=== PATIENT | female | born 1960 | race Caucasian/White ===

== ENCOUNTER → 2016-11-03 | Outpatient (CLI) | payer OTHER ==
[2016-11-03 10:28] LABS: CH 28.4; CHCM 32.2; HCT 45.1 % (34.0-46.0); HDW 2.74; HGB 14.1 gm/dL (11.4-16.0); MCH 27.7 pg (25.0-35.0); MCHC 31.3 g/dL (31.0-37.0); MCV 88.7 fL (80.0-100.0); RBC 5.08 m/uL (3.80-5.40); RDW 14.7 % (11.5-15.5); WBC 9.8 k/uL (3.8-10.6)
[2016-11-03 10:37] LABS: ALT 42 U/L (9-52); AST 20 U/L (14-36); Alkaline Phosphatase 69 U/L (38-126); Anion Gap 10 mmol/L; Blood Urea Nitrogen 13 mg/dL (7-17); Calcium 9.4 mg/dL (8.4-10.2); Carbon Dioxide 26 mmol/L (22-30); Chloride 108 mmol/L (98-107); Cholesterol 152 mg/dL (<200); Glucose 87 mg/dL (74-99); HDL Cholesterol 71 mg/dL (40-60); Non-African American GFR(MDRD) >60 (>60 ml/min/1.73 sqM); Potassium 4.9 mmol/L (3.5-5.1); Sodium 144 mmol/L (137-145); Total Bilirubin 0.5 mg/dL (0.2-1.3); Total Protein 6.6 g/dL (6.3-8.2); Triglycerides 119 mg/dL (<150)
== END | disposition home or self-care (01) ==
LOC: LABWHC1 09:59
PROVIDERS: ATTEND Internal Medicine
DX: Z00.00 Encounter for general adult medical examination without abnormal findings (principal); I11.9 Hypertensive heart disease without heart failure; E78.2 Mixed hyperlipidemia; M54.5 Low back pain; K21.0 Gastro-esophageal reflux disease with esophagitis
CPT/HCPCS: 36415; 80053; 80061; 82272; 84439; 84443; 85027

== ENCOUNTER → 2017-03-17 | Outpatient (CLI) | payer OTHER ==
--- NOTE | 2017-03-18 09:56 | MM ---
Reason for exam: screening (asymptomatic). Last mammogram was performed 1 year and 1 month ago. History: Patient is postmenopausal. Reductions of both breasts, 1999. Took progesterone beginning at age 40. Physical Findings: A clinical breast exam by your physician is recommended on an annual basis and results should be correlated with mammographic findings. MG Screening Mammo w CAD Bilateral CC and MLO view(s) were taken. Prior study comparison: February 29, 2016, bilateral MG screening mammo w CAD. January 18, 2015, bilateral MG screening mammo w CAD. January 10, 2014, bilateral digital screening mammo w/CAD. There are scattered fibroglandular densities. Previous mammotome biopsy in the right breast. There is no discrete abnormality. Prominent vessels bilaterally. ASSESSMENT: Negative, BI-RAD 1 RECOMMENDATION: Routine screening mammogram of both breasts in 1 year.
== END | disposition home or self-care (01) ==
LOC: RADMAMWWP 16:32
PROVIDERS: ATTEND Internal Medicine
DX: Z12.31 Encounter for screening mammogram for malignant neoplasm of breast (principal)

== ENCOUNTER 2017-04-30 12:22 | Emergency (ER) | payer OTHER ==
[2017-04-30 12:34] VITALS: BP 147/83; PULSE 90; TEMP 98.1
[2017-04-30 13:09] VITALS: RESP 18
--- NOTE | 2017-04-30 13:30 | ED ---
General Adult HPI - General Chief complaint: Head Injury Stated complaint: Head Injury Time Seen by Provider: 04/30/17 13:11 Source: patient, RN notes reviewed Mode of arrival: wheelchair Limitations: no limitations - History of Present Illness Initial comments: The patient is a 56-year-old female who presents emergency room today with a chief complaint of a head injury that occurred approximately 2 hours ago. She does admit that she was consenting out of the trunk of the car when the trunk lid came down hitting her on top the head. She states she did get a little dazed at first. She states that she does have some bruising locally top of head. She does admit to headache. She denies any neck pain. Denies any other complaints or associated symptoms. States she's not on any blood thinner. Patient denies any recent fever, chills, shortness of breath, chest pain, back pain, abdominal pain, nausea or vomiting, numbness or tingling, dysuria or hematuria, constipation or diarrhea, visual changes, or any other complaints. - Related Data Home Medications Medication Instructions Recorded Confirmed Unable To Assess [Unable to Assess] 08/26/15 08/26/15 Allergies Allergy/AdvReac Type Severity Reaction Status Date / Time No Known Allergies Allergy Verified 04/30/17 12:34 Review of Systems ROS Statement: Those systems with pertinent positive or pertinent negative responses have been documented in the HPI. ROS Other: All systems not noted in ROS Statement are negative. Past Medical History Past Medical History: Hyperlipidemia, Hypertension History of Any Multi-Drug Resistant Organisms: None Reported Past Surgical History: Breast Surgery, Hysterectomy, Orthopedic Surgery Past Psychological History: Anxiety, Depression Smoking Status: Current every day smoker Past Alcohol Use History: None Reported Past Drug Use History: None Reported General Exam - General Exam Comments Initial Comments: General: The patient is awake and alert, in no distress, and does not appear acutely ill. Eye: Pupils are equal, round and reactive to light, extra-ocular movements are intact. No nystagmus. There is normal conjunctiva bilaterally. No signs of icterus. Ears, nose, mouth and throat: There are moist mucous membranes and no oral lesions. Neck: The neck is supple, there is no tenderness or JVD. Cardiovascular: There is a regular rate and rhythm. No murmur, rub or gallop is appreciated. Respiratory: Lungs are clear to auscultation, respirations are non-labored, breath sounds are equal. No wheezes, stridor, rales, or rhonchi. Gastrointestinal: Soft, non-distended, non-tender abdomen without masses or organomegaly noted. There is no rebound or guarding present. No CVA tenderness. Bowel sounds are unremarkable. Musculoskeletal: Normal ROM, no tenderness. Strength 5/5. Sensation intact. Pulses equal bilaterally 2+. Neurological: A&O x 3. CN II-XII intact, There are no obvious motor or sensory deficits. Coordination appears grossly intact. Speech is normal. Skin: Skin is warm and dry and no rashes or lesions are noted. Psychiatric: Cooperative, appropriate mood & affect, normal judgment. Limitations: no limitations Course Vital Signs 04/30/17 04/30/17 12:32 13:08 Temperature 98.1 F Pulse Rate 90 Respiratory 20 18 Rate Blood Pressure 147/83 O2 Sat by Pulse 98 Oximetry Medical Decision Making - Medical Decision Making Was discussed about possibility of computed tomography scan of the brain here in the emergency room. Was discussed with patient about low back injury. Patient is not on blood thinners. Neurologically intact. At this time patient feels comfortable being discharged home. Advised to return if symptoms increase worsen or for any other concerns. Disposition Clinical Impression: Head injury Disposition: HOME SELF-CARE Condition: Good Instructions: Concussion (ED) Additional Instructions: Please use medication as discussed. Please follow-up with family doctor in the next 2 days. Please return to emergency room if the symptoms increase or worsen or for any other concerns. Referrals: Srinivas Kohli MD [Primary Care Provider] - 1-2 days Time of Disposition: 13:29
== END 2017-04-30 13:40 | disposition home or self-care (01) ==
LOC: EC 12:22
DX: S09.90XA Unspecified injury of head, initial encounter (principal); R51 Headache; F17.200 Nicotine dependence, unspecified, uncomplicated; W20.8XXA Other cause of strike by thrown, projected or falling object, initial encounter
CPT/HCPCS: 99283

== ENCOUNTER → 2017-11-13 | Outpatient (CLI) | payer OTHER ==
[2017-11-13 09:24] LABS: HCT 46.2 % (34.0-46.0); HGB 14.8 gm/dL (11.4-16.0); MCH 28.8 pg (25.0-35.0); MCHC 32.1 g/dL (31.0-37.0); MCV 89.7 fL (80.0-100.0); Mean Platelet Volume 7.5; Platelet Count 283 k/uL (150-450); RBC 5.15 m/uL (3.80-5.40); RDW 14.4 % (11.5-15.5); WBC 11.2 k/uL (3.8-10.6)
[2017-11-13 09:29] LABS: ALT 41 U/L (9-52); AST 26 U/L (14-36); Albumin 4.2 g/dL (3.5-5.0); Alkaline Phosphatase 82 U/L (38-126); Anion Gap 9 mmol/L; Blood Urea Nitrogen 11 mg/dL (7-17); Calcium 9.8 mg/dL (8.4-10.2); Carbon Dioxide 28 mmol/L (22-30); Chloride 106 mmol/L (98-107); Cholesterol 187 mg/dL (<200); Glucose 104 mg/dL (74-99); HDL Cholesterol 80 mg/dL (40-60); LDL Cholesterol,Calculated 83 mg/dL (0-99); Potassium 4.6 mmol/L (3.5-5.1); Sodium 143 mmol/L (137-145); Total Bilirubin 0.3 mg/dL (0.2-1.3); Total Protein 6.7 g/dL (6.3-8.2); Triglycerides 119 mg/dL (<150)
[2017-11-13 09:44] LABS: T4, Free (Free Thyroxine) 1.06 ng/dL (0.78-2.19)
[2017-11-13 17:07] LABS: Hemoglobin A1C 5.6 % (4.0-6.0)
== END | disposition home or self-care (01) ==
LOC: LABWHC1 09:00
PROVIDERS: ATTEND Internal Medicine
DX: Z00.00 Encounter for general adult medical examination without abnormal findings (principal); I11.9 Hypertensive heart disease without heart failure; E78.2 Mixed hyperlipidemia; E03.9 Hypothyroidism, unspecified; K21.0 Gastro-esophageal reflux disease with esophagitis; R73.9 Hyperglycemia, unspecified
CPT/HCPCS: 36415; 80053; 80061; 82272; 83036; 84439; 84443; 85027

== ENCOUNTER → 2018-04-29 | Outpatient (CLI) | payer OTHER ==
--- NOTE | 2018-04-30 11:48 | MM ---
Reason for exam: screening (asymptomatic). Last mammogram was performed 1 year and 1 month ago. History: Patient is postmenopausal and has history of other cancer at age 32. Reductions of both breasts, 1999. Took progesterone beginning at age 40. Physical Findings: A clinical breast exam by your physician is recommended on an annual basis and results should be correlated with mammographic findings. MG Screening Mammo w CAD Bilateral CC and MLO view(s) were taken. Prior study comparison: March 17, 2017, bilateral MG screening mammo w CAD. February 29, 2016, bilateral MG screening mammo w CAD. There are scattered fibroglandular densities. No suspicious abnormality. Right biopsy marker noted. No significant changes when compared with prior studies. ASSESSMENT: Negative, BI-RAD 1 RECOMMENDATION: Routine screening mammogram of both breasts in 1 year.
== END | disposition home or self-care (01) ==
LOC: RADMAMWWP 11:59
PROVIDERS: ATTEND Internal Medicine
DX: Z12.31 Encounter for screening mammogram for malignant neoplasm of breast (principal)
CPT/HCPCS: 77067

== ENCOUNTER → 2019-03-11 | Outpatient (CLI) | payer OTHER ==
[2019-03-11 07:51] LABS: HCT 43.8 % (34.0-46.0); HGB 14.3 gm/dL (11.4-16.0); MCH 28.2 pg (25.0-35.0); MCHC 32.7 g/dL (31.0-37.0); MCV 86.3 fL (80.0-100.0); Mean Platelet Volume 6.9; Platelet Count 293 k/uL (150-450); RBC 5.07 m/uL (3.80-5.40); RDW 13.7 % (11.5-15.5); WBC 9.4 k/uL (3.8-10.6)
[2019-03-11 11:53] LABS: Albumin 4.4 g/dL (3.80-4.90); Albumin/Globulin Ratio 2.32 (1.60-3.17); Calcium 9.7 mg/dL (8.7-10.3); Globulin 1.9 g/dL (1.6-3.3); LDL Cholesterol,Calculated 66.2 mg/dL (0.0-131.0); Potassium 4.7 mmol/L (3.5-5.5); Total Bilirubin 0.2 mg/dL (0.2-1.2); Total Protein 6.3 g/dL (6.2-8.2); VLDL Calculation 17.8 mg/dL (5.00-40.00)
[2019-03-11 14:27] LABS: Hemoglobin A1C 5.7 % (4.0-6.0)
== END | disposition home or self-care (01) ==
LOC: LABWHC1 07:20
PROVIDERS: ATTEND Internal Medicine
DX: Z00.00 Encounter for general adult medical examination without abnormal findings (principal); I11.9 Hypertensive heart disease without heart failure; E11.9 Type 2 diabetes mellitus without complications; E03.9 Hypothyroidism, unspecified
CPT/HCPCS: 36415; 80053; 80061; 83036; 84439; 84443; 85027

== ENCOUNTER → 2019-06-02 | Outpatient (CLI) | payer OTHER ==
--- NOTE | 2019-06-03 09:06 | MM ---
Reason for exam: screening (asymptomatic). Last mammogram was performed 1 year and 1 month ago. History: Patient is postmenopausal and has history of other cancer at age 32. Reductions of both breasts, 1999. Took progesterone beginning at age 40. Physical Findings: A clinical breast exam by your physician is recommended on an annual basis and results should be correlated with mammographic findings. MG Screening Mammo w CAD Bilateral CC and MLO view(s) were taken. Prior study comparison: April 29, 2018, bilateral MG screening mammo w CAD. March 17, 2017, bilateral MG screening mammo w CAD. There are scattered fibroglandular densities. Left upper inner quadrant focal asymmetry at middle depth. ASSESSMENT: Incomplete: need additional imaging evaluation, BI-RAD 0 RECOMMENDATION: Special view mammogram of the left breast. If lesion persists on supplemental views, image directed ultrasound is recommended. [facility] will attempt to contact patient to return for supplemental views and ultrasound if indicated.
== END | disposition home or self-care (01) ==
LOC: RADMAMWWP 10:11
PROVIDERS: ATTEND Internal Medicine
DX: Z12.31 Encounter for screening mammogram for malignant neoplasm of breast (principal); Z98.890 Other specified postprocedural states
CPT/HCPCS: 77067

== ENCOUNTER → 2019-06-09 | Outpatient (CLI) | payer OTHER ==
--- NOTE | 2019-06-10 08:08 | MM ---
Reason for exam: additional evaluation requested from abnormal screening. Last mammogram was performed less than 1 month ago. History: Patient is postmenopausal and has history of other cancer at age 32. Reductions of both breasts, 1999. Took progesterone beginning at age 40. Physical Findings: Nurse did not find any significant physical abnormalities on exam. MG Work Up Mamm w CAD LT Spot compression CC, spot compression MLO, and LM view(s) were taken of the left breast. Prior study comparison: June 02, 2019, bilateral MG screening mammo w CAD. April 29, 2018, bilateral MG screening mammo w CAD. There are scattered fibroglandular densities. There is no discrete abnormality. Upper focal asymmetries. Persistent rounded density at 12 o'clock left breast. These results were verbally communicated with the patient and result sheet given to the patient on 06/09/19. ASSESSMENT: Incomplete: need additional imaging evaluation, BI-RAD 0 RECOMMENDATION: Ultrasound of the left breast.
--- NOTE | 2019-06-10 08:11 | USB ---
Reason for exam: additional evaluation requested from abnormal screening. History: Patient is postmenopausal and has history of other cancer at age 32. Reductions of both breasts, 1999. Took progesterone beginning at age 40. US Breast Workup Limited LT Left limited breast ultrasound including focal area of concern, retroareolar and axilla demonstrates a 0.8 x 0.7 x 0.3cm oval, solid lesion at 1 o'clock and a 0.5 x 0.5 x 0.3cm oval, cystic lesion at 2 o'clock. These results were verbally communicated with the patient and result sheet given to the patient on 06/09/19. ASSESSMENT: Probably benign, BI-RAD 3 RECOMMENDATION: Stereotactic core biopsy of the left breast. Called Dr. Tierney with mammographic findings and has scheduled an appointment for the patient for 06/30/19 at 12:[address] Fritz. Biopsy scheduled for 07/07/19 at 8:00. PRELIMINARY REPORT CALLED AND FAXED TO DR. FRITZ ON 06/09/19. Follow-up diagnostic mammogram of the left breast in 6 months.
== END | disposition home or self-care (01) ==
LOC: RADMAMWWP 13:28
PROVIDERS: ATTEND Internal Medicine
DX: R92.8 Other abnormal and inconclusive findings on diagnostic imaging of breast (principal)
CPT/HCPCS: 77065

== ENCOUNTER → 2019-07-01 | Outpatient (CLI) | payer OTHER ==
[2019-07-01 13:40] VITALS: BP 107/73; PULSE 85; RESP 18; TEMP 98.1; BMI 33.6
--- NOTE | 2019-07-01 14:15 | P.GSHP ---
History of Present Illness H&P Date: 07/01/19 Chief Complaint: Abnormal mammogram left breast Berta is a 58-year-old white female [place] [id number]. An upper inner quadrant focal asymmetry was identified and she was recommended to have special views of the left breast. On the s pecial views of the left breast a persistent rounded density at 12:00 was noted. The patient then had an ultrasound performed which revealed a 0.8 x 0.3 solid lesion at 1:00 and a 0.5 x 0.3 over the cystic lesion at 2:00. These are felt to be probably benign BIRADS 3 however stereotactic core biopsy of the left breast was recommended. The patient's x-rays were reviewed with radiology and there is concern that the area being looked at by presents blood vessels rather than the actual lesion of concern. It is recommended that she have a 3-D mammogram performed to better evaluate this area. A 3 mammogram is negative she will have repeat bilateral mammogram in 1 year. If the repeat mammogram is positive she will have an ultrasound to hien the area of the cyst followed by a mammogram and if the area being seen is actually a cyst again a repeat mammogram in 1 year. Otherwise stereotactic core biopsy could be considered. The patient herself does not feel any lumps masses or nodules in her breast. She denies any pain or nipple discharge. She has not had any recent trauma or infection in her breast. Family history: mother: small cell lung cancer sister: of metastatic disease uncertain of the primary Hormonal history: Menarche: 11 miscarriage 1, breast fed: yes, age at first : 20 menopause: complete hysterectomy at 40, done for bleeding BCP: 4 years hormones: Premarin for several months Surgical history: 1. Complete hysterectomy at 40 2. breast reduction 3. Pilonidal cyst 4. pins in left wrist Medical History: HTN back pain hypothyroid high cholesterol Social History: alcohol: stopped 10 years ago, daily in 's smoke: stopped in December, 10/20 PPD for 20 years drugs: Marijuana as a youth - Constitutional Constitutional: Denies chills, Denies fever - EENT Eyes: denies blurred vision, denies pain Ears: deny: decreased hearing, tinnitus Ears, nose, mouth and throat: Reports sinus pain, Denies headache, Denies sore throat - Breasts Breasts: bilateral: as per HPI - Cardiovascular Cardiovascular: Reports high blood pressure - Respiratory Respiratory: Denies cough, Denies 7 - Gastrointestinal Gastrointestinal: Denies abdominal pain, Denies diarrhea, Denies nausea, Denies vomiting - Genitourinary (Female) Genitourinary: Denies dysuria, Denies hematuria - Menstruation Menstruation: Reports post hysterectomy - Musculoskeletal Comment: arthritis - Integumentary Integumentary: Denies pruritus, Denies rash - Neurological Neurological: Denies numbness, Denies weakness - Psychiatric Psychiatric: Reports anxiety, Reports depression - Endocrine Endocrine: Reports weight change, Denies fatigue - Hematologic/Lymphatic Comment: none - Allergic/Immunologic Allergic/Immunologic: Reports seasonal allergies Past Medical History Past Medical History: Hyperlipidemia, Hypertension, Thyroid Disorder History of Any Multi-Drug Resistant Organisms: None Reported Past Surgical History: Breast Surgery, Hysterectomy, Orthopedic Surgery Past Psychological History: Anxiety, Depression Smoking Status: Former smoker Past Alcohol Use History: None Reported Past Drug Use History: None Reported Medications and Allergies Home Medications Medication Instructions Recorded Confirmed Type ALPRAZolam [Xanax] 1 mg PO BID 06/22/19 07/01/19 History Cyclobenzaprine [Flexeril] 5 mg PO BID PRN 06/22/19 07/01/19 History Enalapril [Vasotec] 10 mg PO DAILY 06/22/19 07/01/19 History Levothyroxine Sodium [Synthroid] 50 mcg PO DAILY 06/22/19 07/01/19 History Simvastatin [Zocor] 10 mg PO HS 06/22/19 07/01/19 History amLODIPine [Norvasc] 2.5 mg PO DAILY 06/22/19 07/01/19 History busPIRone HCl [Buspar] 5 mg PO TID 06/22/19 07/01/19 History oxyCODONE-APAP 10-325MG [Percocet 1 tab PO Q8HR PRN 06/22/19 07/01/19 History 10-325 mg] rOPINIRole HCL [Requip] 1 mg PO HS 06/22/19 07/01/19 History traZODone HCL 100 mg PO HS 06/22/19 07/01/19 History Allergies Allergy/AdvReac Type Severity Reaction Status Date / Time No Known Allergies Allergy Verified 06/22/19 15:38 Surgical - Exam Vital Signs Temp Pulse Resp BP Pulse Ox 98.1 F 85 18 107/73 92 L 07/01/19 13:36 07/01/19 13:36 07/01/19 13:36 07/01/19 13:36 07/01/19 13:36 BMI 33.7 - General obese - Eyes normal ocular movement - ENT no hearing loss, no congestion - Neck no masses, trachea midline - Respiratory normal respiratory effort, clear to auscultation - Cardiovascular Rhythm: regular Heart Sounds: normal: S1, S2 - Abdomen Abdomen: soft, non tender, no guarding, no rigid, no rebound - Integumentary normal turgor - Neurologic no disoriented, no combative - Psychiatric oriented to time, oriented to person, oriented to place, speech is normal, memory intact Breast examination: Right breast: Reveals scars from reduction mammoplasty, multiple positional exam no dominant masses or nodules of concern Right axilla: No adenopathy of concern Left breast: Reveals scars from reduction mammoplasty, multiple positional exam no dominant masses or nodules of concern Left axilla: No adenopathy of concern Results Mammogram and ultrasound results reviewed Assessment and Plan Assessment: Impression: 1. Abnormal mammogram and ultrasound left breast 2. Fibrocystic breast changes 3. Status post bilateral reduction mammoplasty 4. Family history of cancer 5. Arthritis/back pain 6. Hypertension 7. Simvastatin for high cholesterol Plan: 1. Patient's x-rays were reviewed with Dr. Stack. She will have a 3-D mammogram of the left breast. If this is negative then she will have bilateral mammogram in 1 year with physician exam at that time If this is positive she will have an ultrasound placing a BB on the cyst that was identified. Followed by mammogram to see if the area seen on mammography corresponds to the cyst. If it does then no biopsy is necessary and repeat mammogram in 1 year is recommended. If the 3-D mammogram shows a lesion of concern that biopsy will be obtained. The stereo biopsy which was originally scheduled has been canceled at this time. 2. Medical management of medical conditions Cc: Dr. Tierney
--- NOTE | 2019-07-04 09:30 | MM ---
Reason for exam: clinical finding. Last mammogram was performed 1 month ago. History: Patient is postmenopausal and has history of other cancer at age 32. Benign excisional biopsy of the right breast, 2003. Reductions of both breasts, 1998. Took progesterone beginning at age 40. Physical Findings: Breast exam performed by Dr. Callaway. MG 3D Diag Mammo W/Cad LT CC, MLO, XCCL, and CC with magnification view(s) were taken of the left breast. Prior study comparison: June 09, 2019, left breast MG work up mamm w CAD LT. June 02, 2019, bilateral MG screening mammo w CAD. 3-4mm mass of the inner qudrant appearing inferior on tomosynthesis. Ultrasound will be performed of the medial breast. These results were verbally communicated with the patient and result sheet given to the patient on 07/04/19. ASSESSMENT: Incomplete: need additional imaging evaluation, BI-RAD 0 RECOMMENDATION: Ultrasound of the left breast.
--- NOTE | 2019-07-04 09:36 | USB ---
Reason for exam: additional evaluation requested from abnormal screening. History: Patient is postmenopausal and has history of other cancer at age 32. Benign excisional biopsy of the right breast, 2003. Reductions of both breasts, 1998. Took progesterone beginning at age 40. US Breast Limited LT Left limited breast ultrasound including focal area of concern, retroareolar and axilla demonstrates a 0.9 x 0.4 x 0.8cm solid lesion at 1 o'clock, a 0.6 x 0.3 x 0.5cm cystic lesion at 2 o'clock, a 0.3 x 0.4 x 0.3cm lesion too small to characterize at 9 o'clock shadowing mass, may correlate with mammogram, asses on post biopsy images and a 0.3 x 0.2 x 0.3cm cystic lesion at 9 o'clock. These results were verbally communicated with the patient and result sheet given to the patient on 07/01/19. ASSESSMENT: Suspicious, BI-RAD 4 RECOMMENDATION: Ultrasound core biopsy of the left breast. Called Dr. Callaway with mammographic findings. Biopsy scheduled for 07/07/19 at 8:00. PRELIMINARY REPORT CALLED AND FAXED TO DR. CALLAWAY ON 07/04/19.
== END ==
LOC: WWCWWP 12:45
PROVIDERS: ATTEND Surgery
DX: R92.8 Other abnormal and inconclusive findings on diagnostic imaging of breast (principal)
CPT/HCPCS: 77065; 76642; G0279; 77061

== ENCOUNTER → 2019-07-07 | Day surgery (SDC) | payer OTHER ==
[2019-07-07 07:27] VITALS: RESP 16; TEMP 98.5; BMI 33.6
[2019-07-07 08:54] VITALS: BP 130/89; PULSE 81
--- NOTE | 2019-07-07 09:25 | USB ---
EXAMINATION TYPE: US biopsy breast VAD LT, MG 3D diag mammo wo cad LT DATE OF EXAM: 07/07/2019 CLINICAL HISTORY: R92.8 ABN MAMMO. TECHNIQUE: Ultrasound guided core biopsy of left 9:00 breast. COMPARISON: NONE FINDINGS: The procedure of ultrasound guided core biopsy was explained to the patient. Benefits, alternatives, and risks were discussed. An informed consent was then obtained. The patient was placed in supine positioning for imaging and for the procedure. The overlying skin was prepped and draped in usual sterile fashion. Lidocaine buffered with bicarbonate was used as anesthetic into the skin and subcutaneous tissue up to area of concern in the left 9:00 breast. A denise was made with surgical scalpel. Under ultrasound guidance, a 12-gauge vacuum assisted biopsy gun device was used to obtain 4 core samples. Following this, a biopsy clip was left in lesion. The patient tolerated the procedure well without any immediate complication. The patient was kept in the radiology department for short stay after the procedure and then discharged home in stable condition. IMPRESSION: Successful, uncomplicated ultrasound guided core biopsy of area of concern in the left 9:00 breast, full pathology results to follow. Pathology Results: High Risk LEFT BREAST, ULTRASOUND GUIDED CORE BIOPSY: Intraductal papilloma, focally sclerotic. Recommendation Surgical consult of the left breast. Papilloma. Biopsy marker is separate from 3-4mm mass seen on mammogram of 06/02/19. If needle localization is pursued for the papilloma, 2 site localization is recommended. MTDD
== END ==
LOC: RADMAMWWP 07:02
PROVIDERS: ATTEND Surgery
DX: D24.2 Benign neoplasm of left breast (principal)
CPT/HCPCS: 88305; 77065; 19083; G0279; A4648; J2001; 77061

== ENCOUNTER → 2019-07-14 | Outpatient (CLI) | payer OTHER ==
[2019-07-14 14:29] VITALS: BP 115/88; PULSE 84; RESP 18; TEMP 98.4; BMI 33.6
--- NOTE | 2019-07-14 14:48 | P.PN ---
Subjective Principal diagnosis: Results of ultrasound core biopsy Berta is a 58-year-old white female who is status post ultrasound-guided core biopsy of the left breast on . [place] [address]. An upper inner quadrant focal asymmetry was identified and she was recommended amended to a special views of the left breast. On special views persistent rounded density at 12:00 was noted. She then had an ultrasound performed which revealed a 0.8 x 0.3 cm solid lesion at 1:00 and a 0.5-0.3 cm cystic lesion at 2:00. These were felt to be probably benign BIRADS 3. However stereotactic core biopsy of the left breast was recommended for focal asymmetry. The patient subsequently had an ultrasound-guided core biopsy of the lesion in the left breast and pathology revealed an intraductal papilloma. This lesion which was biopsied was not felt to be the lesion initially identified on the mammogram. Therefore after review with Dr. Stack from radiology it has been recommended that the patient undergo needle localization of 2 areas of concern in the left breast. The area of the intraductal papilloma as well as the asymmetry which was initially identified on the mammogram. The patient is not complaining of any problems related to the procedure. Family history: mother: small cell lung cancer sister: of metastatic disease uncertain of the primary Hormonal history: Menarche: 11 miscarriage 1, breast fed: yes, age at first : 20 menopause: complete hysterectomy at 40, done for bleeding BCP: 4 years hormones: Premarin for several months, not taking any now Surgical history: 1. Complete hysterectomy at 40 2. breast reduction 3. Pilonidal cyst 4. pins in left wrist Medical History: HTN back pain hypothyroid high cholesterol Social History: alcohol: stopped 10 years ago, daily in 's smoke: stopped in December, 10/20 PPD for 20 years drugs: Marijuana as a youth - Constitutional Constitutional: Denies chills, Denies fever - EENT Eyes: denies blurred vision, denies pain Ears: deny: decreased hearing, tinnitus Ears, nose, mouth and throat: Reports sinus pain, Denies headache, Denies sore throat - Breasts Breasts: bilateral: as per HPI - Cardiovascular Cardiovascular: Reports high blood pressure - Respiratory Respiratory: Denies cough, Denies 7 - Gastrointestinal Gastrointestinal: Denies abdominal pain, Denies diarrhea, Denies nausea, Denies vomiting - Genitourinary (Female) Genitourinary: Denies dysuria, Denies hematuria - Menstruation Menstruation: Reports post hysterectomy - Musculoskeletal Comment: arthritis - Integumentary Integumentary: Denies pruritus, Denies rash - Neurological Neurological: Denies numbness, Denies weakness - Psychiatric Psychiatric: Reports anxiety, Reports depression - Endocrine Endocrine: Reports weight change, Denies fatigue - Hematologic/Lymphatic Comment: none - Allergic/Immunologic Allergic/Immunologic: Reports seasonal allergies Past Medical History Past Medical History: Hyperlipidemia, Hypertension, Thyroid Disorder History of Any Multi-Drug Resistant Organisms: None Reported Past Surgical History: Breast Surgery, Hysterectomy, Orthopedic Surgery Past Psychological History: Anxiety, Depression Smoking Status: Former smoker Past Alcohol Use History: None Reported Past Drug Use History: None Reported Medications and Allergies Home Medications Medication Instructions Recorded Confirmed Type ALPRAZolam [Xanax] 1 mg PO BID 06/22/19 07/01/19 History Cyclobenzaprine [Flexeril] 5 mg PO BID PRN 06/22/19 07/01/19 History Enalapril [Vasotec] 10 mg PO DAILY 06/22/19 07/01/19 History Levothyroxine Sodium [Synthroid] 50 mcg PO DAILY 06/22/19 07/01/19 History Simvastatin [Zocor] 10 mg PO HS 06/22/19 07/01/19 History amLODIPine [Norvasc] 2.5 mg PO DAILY 06/22/19 07/01/19 History busPIRone HCl [Buspar] 5 mg PO TID 06/22/19 07/01/19 History oxyCODONE-APAP 10-325MG [Percocet 1 tab PO Q8HR PRN 06/22/19 07/01/19 History 10-325 mg] rOPINIRole HCL [Requip] 1 mg PO HS 06/22/19 07/01/19 History traZODone HCL 100 mg PO HS 06/22/19 07/01/19 History Allergies Allergy/AdvReac Type Severity Reaction Status Date / Time No Known Allergies Allergy Verified 06/22/19 15:38 Objective - Vital Signs Vital signs: Vital Signs Temp 98.4 F 07/14/19 14:25 Pulse 84 07/14/19 14:25 Resp 18 07/14/19 14:25 BP 115/88 07/14/19 14:25 Pulse Ox 96 07/14/19 14:25 Intake & Output 07/13/19 07/14/19 07/14/19 18:59 06:59 18:59 Weight 86.183 kg - Exam BMI 33.7 - Constitutional General appearance: Present: obese - EENT Eyes: Present: EOMI ENT: Present: hearing grossly normal - Neck Neck: Present: normal ROM - Respiratory Respiratory: bilateral: CTA - Cardiovascular Rhythm: regular Heart sounds: normal: S1, S2 - Gastrointestinal General gastrointestinal: Present: soft - Musculoskeletal Musculoskeletal: Present: gait normal - Psychiatric Psychiatric: Present: A&O x's 3, appropriate affect, intact judgment & insight - Additional findings Additional findings: Left breast: Small area of abrasion in the upper inner area of the left breast will be and it was removed The biopsy site clean and dry no evidence of any infection Assessment and Plan Assessment: Impression: 1. Ultrasound-guided core biopsy of left breast positive for intraductal papilloma 2. Mammographic abnormality does not correspond to ultrasound area of biopsy as per clip placement 3. Fibrocystic breast changes 4. Family history of cancer 5. Hypertension 6. Back pain 7. Hypothyroidism 8. High cholesterol We have discussed the radiographic findings as well as the pathology results. Berta understands that the asymmetry in the breast was not sampled and the ultrasound core biopsy was of a separate area as evidenced by the clip placement after the procedure. The intraductal papilloma it is recommended to be excised via needle localization. After discussion with the radiologist she has recommended that we also do needle local of the area of asymmetry in the breast for which the workup initially started and removed both areas at the same time. The areas appear to be close to each other. The patient understands the risks and benefits and wishes to proceed. I discussed with her that the intraductal papilloma is not a cancer however it is recommended that it be excised. Plan: 1. Needle localization of the area of asymmetry in the left breast as well as needle localization of the intraductal papilloma biopsy site with excision in the operating room 2. Medical management of medical conditions CC: DR. Tierney
== END | disposition home or self-care (01) ==
LOC: WWCWWP 14:16
PROVIDERS: ATTEND Surgery
DX: Z53.9 Procedure and treatment not carried out, unspecified reason (principal)

== ENCOUNTER 2019-08-17 08:51 | Day surgery (SDC) | payer OTHER ==
[2019-08-15 09:11] VITALS: BMI 33.3
[~2019-08-17 08:51] MED LIST: DEXAMETHASONE SOD PHOSPHATE 10 MG/ML 1 ML VIAL IV ONE; HEPARIN SODIUM,PORCINE 5,000 UNIT/ML 1 ML VIAL SQ ONE; HYDROmorphone 0.5 MG/0.5 ML SYRINGE IVP PRN; LACTATED RINGERS 1,000 ML IV SCH; LIDOCAINE 1% 20 ML VIAL (10MG/ML) FOR IV START INTRADERMA PRN; ONDANSETRON 4 MG/2 ML VIAL IVP ONE; SCOPOLAMINE 1.5MG/72HR PATCH TRANSDERM ONE
[2019-08-17] MEDS ORDERED: ALPRAZolam 0.5 MG TAB PO ONE (09:34)
[2019-08-17] MEDS ORDERED: LIDOCAINE 1% INJ 10MG/ML (20 ML MDV) SQ ONE ×2 (10:30→10:57)
[2019-08-17] MEDS ORDERED: HEPARIN SODIUM,PORCINE 5,000 UNIT/ML 1 ML VIAL SQ ONE (12:35)
[2019-08-17] MEDS ORDERED: MIDAZOLAM 2 MG/2 ML VIAL ONE (13:06)
[2019-08-17] MEDS ORDERED: fentaNYL (PF) 50 MCG/ML 2 ML AMP ONE (13:06)
[2019-08-17] MEDS ORDERED: SUCCINYLCHOLINE CHLORIDE 100 MG/5 ML SYR IV ONE (13:06)
[2019-08-17] MEDS ORDERED: PROPOFOL 10 MG/ML 20 ML VIAL IV ONE (13:06)
[2019-08-17] MEDS ORDERED: ePHEDrine SULFATE/0.9% NACL/PF 50 MG/5 ML SYRINGE IV ONE (13:06)
[2019-08-17] MEDS ORDERED: LIDOCAINE 1% INJ 10MG/ML (20 ML MDV) ONE (13:06)
[2019-08-17] MEDS ORDERED: IV FLUID CONTINUATION 1,000 ML IV ONE (14:00)
--- NOTE | 2019-08-17 14:16 | P.OP ---
Date of Procedure: 08/17/19 Preoperative Diagnosis: Intraductal papilloma on core biopsy, area of asymmetry of concern on mammogram Postoperative Diagnosis: Same Procedure(s) Performed: Needle Localization of 2 areas of concern in the left breast, excisional biopsy of these areas Anesthesia: SAIGE Surgeon: Saniya Callaway Estimated Blood Loss (ml): 4 IV fluids (ml): 700 Pathology: other (Breast tissue) Condition: stable Disposition: same day Indications for Procedure: Core biopsy revealing intraductal papilloma, secondary of asymmetry noted in the left breast unsuccessfully attempted core biopsy of this area Operative Findings: Fibrofatty breast tissue Description of Procedure: Berta is a 59-year-old white female who on radiographic study was noted to have an area of asymmetry in the left breast as well as an area for which core biopsy was done and revealed an intraductal papilloma. After review with radiology it was recommended that these 2 areas be localized and excisional biopsy in the operating room be performed. The areas of concern in the left breast were localized via needle localization. Patient was taken to the operating room and following induction of anesthesia the left breast was prepped and draped in a sterile fashion. Wide excision around the shaft of both needles was performed. Hemostasis was attained using electrocautery device. The wound was well irrigated. The specimen was painted for orientation. Radiograph of the specimen revealed both areas of concern had been removed. Titanium clips were placed to hien the cavity. The deep tissues were closed using 3-0 Vicryl suture. The skin was closed using superficial 4-0 vicryl dermal suture. The skin was closed using a 4-0 subcuticular Monocryl. All instrument and sponge counts were correct at the end of the case. Patient tolerated the procedure in stable condition.
--- NOTE | 2019-08-17 14:18 | P.DS ---
Providers Attending physician: Saniya Callaway Primary care physician: Kieran Tierney Plan - Discharge Summary Discharge Rx Participant: No New Discharge Prescriptions: No Action rOPINIRole HCL [Requip] 1 mg PO HS Simvastatin [Zocor] 10 mg PO HS Levothyroxine Sodium [Synthroid] 50 mcg PO DAILY Enalapril [Vasotec] 10 mg PO DAILY oxyCODONE-APAP 10-325MG [Percocet 10-325 mg] 1 tab PO Q8HR PRN PRN Reason: Pain Cyclobenzaprine [Flexeril] 5 mg PO BID PRN PRN Reason: Muscle Spasm busPIRone HCl [Buspar] 5 mg PO TID ALPRAZolam [Xanax] 0.5 mg PO BID traZODone HCL 100 mg PO HS amLODIPine [Norvasc] 2.5 mg PO DAILY Montelukast [Singulair] 10 mg PO HS Discharge Medication List ALPRAZolam [Xanax] 0.5 mg PO BID 06/22/19 [History] Cyclobenzaprine [Flexeril] 5 mg PO BID PRN 06/22/19 [History] Enalapril [Vasotec] 10 mg PO DAILY 06/22/19 [History] Levothyroxine Sodium [Synthroid] 50 mcg PO DAILY 06/22/19 [History] Simvastatin [Zocor] 10 mg PO HS 06/22/19 [History] amLODIPine [Norvasc] 2.5 mg PO DAILY 06/22/19 [History] busPIRone HCl [Buspar] 5 mg PO TID 06/22/19 [History] oxyCODONE-APAP 10-325MG [Percocet 10-325 mg] 1 tab PO Q8HR PRN 06/22/19 [History] rOPINIRole HCL [Requip] 1 mg PO HS 06/22/19 [History] traZODone HCL 100 mg PO HS 06/22/19 [History] Montelukast [Singulair] 10 mg PO HS 08/15/19 [History] Follow up Appointment(s)/Referral(s): Saniya Callaway MD [STAFF PHYSICIAN] - 1 Week Activity/Diet/Wound Care/Special Instructions: do not drive for 24 hours after discharge do not drive if using narcotic pain medication may shower after 48 hours wear bra at all times until seen by DR. Mcrae Discharge Disposition: HOME SELF-CARE
[2019-08-17 15:08] VITALS: TEMP 97
[2019-08-17 15:37] VITALS: BP 118/72; PULSE 109; RESP 18
--- NOTE | 2019-08-22 08:24 | MM ---
EXAMINATION TYPE: MG pre op needle loc LT, MG pre op loc each addl LT, MG surgical specimen LT, MG surgical specimen LT DATE OF EXAM: 08/17/2019 COMPARISON: Left breast biopsy dated 07/07/2019 and diagnostic mammogram dated 07/01/2019. CLINICAL HISTORY: Biopsy-proven left high risk papilloma and mammographic focal asymmetry for which 2 site and no localization was recommended. TECHNIQUE: Needle localization with wire placement and surgical excision of 2 areas of concern within the left breast. FINDINGS: The procedure of needle localization with wire placement and than surgical excision was explained to the patient. Benefits, alternatives, and risks were discussed. An informed consent was then obtained. Preprocedural timeout was performed. Site A: The most suitable pathway for procedure was chosen. Most suitable pathway was CC from above approach. The density was best seen on CC view. The overlying skin was prepped and draped in usual sterile fashion. Lidocaine buffered with bicarbonate was used as anesthetic into the skin and subcutaneous tissue up to the level of area of concern. A 9 cm needle was used. It was placed via a CC from above approach under mammographic guidance. Subsequent 90 degrees mammogram show the needle to be in satisfactory position relative to the targeted area. At this point, wire was placed and the needle was withdrawn. The wire was fixed to patient's skin. Images were marked for surgeon. Site B: The most suitable pathway for procedure was chosen. Most suitable pathway was CC from above approach. The overlying skin was prepped and draped in usual sterile fashion. Lidocaine buffered with bicarbonate was used as anesthetic into the skin and subcutaneous tissue up to the level of area of concern. A 5 cm needle was used. It was placed via a CC from above approach under mammographic guidance. Subsequent 90 degrees mammogram show the needle to be in satisfactory position relative to the targeted area. At this point, wire was placed and the needle was withdrawn. The wire was fixed to patient's skin. Images were marked for surgeon. The patient tolerated the procedure well without any immediate complication. The patient was kept in the radiology department for short stay after the procedure and then taken to surgery for surgical excision. Targeted biopsy marker and both wires are identified in specimen mammograms. The patient was kept in hospital for short stay after the procedure and then discharged home in stable condition. Findings communicated to the OR at 1414 on 08/17/2019. IMPRESSION: Successful, uncomplicated 2 site needle localization with wire placement and surgical excision of suspicious group of calcifications in the left breast, full pathology results to follow. Pathology Results: Benign LEFT BREAST, LUMPECTOMY: Intraductal papilloma measuring 0.3 cm in greatest dimension. Completely excised. Recommendation Follow up mammogram of the left breast in 6 months. LISSETT
== END 2019-08-17 15:50 | disposition home or self-care (01) ==
LOC: OR 08:51
PROVIDERS: ATTEND Surgery
DX: D24.2 Benign neoplasm of left breast (principal); N64.89 Other specified disorders of breast; I10 Essential (primary) hypertension; E78.5 Hyperlipidemia, unspecified; E03.9 Hypothyroidism, unspecified; E78.00 Pure hypercholesterolemia, unspecified; J44.9 Chronic obstructive pulmonary disease, unspecified; F39 Unspecified mood [affective] disorder; J30.2 Other seasonal allergic rhinitis; F41.9 Anxiety disorder, unspecified; F32.9 Major depressive disorder, single episode, unspecified; E66.9 Obesity, unspecified; Z87.891 Personal history of nicotine dependence; Z79.890 Hormone replacement therapy; Z79.899 Other long term (current) drug therapy; Z90.710 Acquired absence of both cervix and uterus; Z68.33 Body mass index [BMI] 33.0-33.9, adult; Z80.1 Family history of malignant neoplasm of trachea, bronchus and lung; Z98.890 Other specified postprocedural states
CPT/HCPCS: 19125; 19126; 88307; 76098; 19281; 19282; J2250; J1644; J0690; J2001; J3010; J0330; J2704

== ENCOUNTER → 2019-08-26 | Outpatient (CLI) | payer OTHER ==
[2019-08-26 07:50] VITALS: BP 118/82; PULSE 118; RESP 20; TEMP 97.8; BMI 33.6
--- NOTE | 2019-08-26 07:56 | P.PN ---
Progress Note - Text Progress Note Date: 08/26/19 Gen. this is a 59-year-old white female status post needle localization and left breast lumpectomy on [id number]. Pathology revealed an intraductal papilloma. This was completely excised. The patient has no complaints related to the procedure. 2 areas of concern had been localized in both areas were felt to be excised. Physical exam: Lungs: Clear Heart: Regular rate and rhythm Incision: Clean and dry Impression: 1. Intraductal papilloma left breast Plan: BP left breast mammogram and physician exam in 6 months CC: Dr. Tierney
== END | disposition home or self-care (01) ==
LOC: WWCWWP 07:36
PROVIDERS: ATTEND Surgery
DX: Z53.9 Procedure and treatment not carried out, unspecified reason (principal)

== ENCOUNTER → 2019-09-30 | Outpatient (CLI) | payer OTHER ==
[2019-09-30 18:40] LABS: T4, Free (Free Thyroxine) 0.9 ng/dL (0.80-1.80)
== END | disposition home or self-care (01) ==
LOC: LABWHC1 08:45
PROVIDERS: ATTEND Internal Medicine
DX: E03.9 Hypothyroidism, unspecified (principal)
CPT/HCPCS: 36415; 84439; 84443

== ENCOUNTER → 2020-12-24 | Outpatient (CLI) | payer OTHER ==
[2020-12-24 14:34] LABS: Basophils # (A) 0.06 X 10*3/uL (0.00-0.10); Basophils % (A) 0.6 %; Eosinophils # (A) 0.12 X 10*3/uL (0.04-0.35); Eosinophils % (A) 1.2 %; HCT 46.4 % (37.2-46.3); HGB 14.8 g/dL (12.0-15.0); Lymphocytes # (A) 2.61 X 10*3/uL (0.90-5.00); Lymphocytes % (A) 25.3 %; MCH 28.6 pg (27.0-32.0); MCHC 31.9 g/dL (32.0-37.0); MCV 89.6 fL (80.0-97.0); Monocytes # (A) 0.76 X 10*3/uL (0.20-1.00); Monocytes % (A) 7.4 %; Neutrophils # (A) 6.72 X 10*3/uL (1.80-7.70); Neutrophils % (A) 65.2 %; Platelet Count 261 X 10*3/uL (140-440); RBC 5.18 X 10*6/uL (4.10-5.20); RDW 13.9 % (11.5-14.5)
[2020-12-24 18:04] LABS: Erythrocyte Sedimentation Rate 6 mm/Hr (0-30)
[2020-12-24 18:05] LABS: ALT 22 U/L (8-44); AST 18 U/L (13-35); African American GFR (CKD) 92.9 (60.0-200.0); Albumin/Globulin Ratio 2.56 (1.60-3.17); Alkaline Phosphatase 80 U/L (41-126); C Reactive Protein <0.4 mg/dL (0.0-0.8); Calcium 9.5 mg/dL (8.7-10.3); Carbon Dioxide 30.7 mmol/L (21.6-31.8); Chloride 106 mmol/L (96-109); Chol/HDL Ratio 2.25; Cholesterol 162 mg/dL (0-200); Creatine Kinase 94 U/L (26-186); Globulin 1.8 g/dL (1.6-3.3); Glucose 98 mg/dL (70-110); LDL Cholesterol,Calculated 72.2 mg/dL (0.0-131.0); Non-African American GFR(CKD) 80.1 (60.0-200.0); Potassium 4.3 mmol/L (3.5-5.5); Sodium 140 mmol/L (135-145); Total Bilirubin 0.3 mg/dL (0.3-1.2); Total Protein 6.4 g/dL (6.2-8.2)
== END | disposition home or self-care (01) ==
LOC: LABWHC1 07:20
PROVIDERS: ATTEND Internal Medicine
DX: Z00.00 Encounter for general adult medical examination without abnormal findings (principal); E03.9 Hypothyroidism, unspecified; E78.5 Hyperlipidemia, unspecified; E55.9 Vitamin D deficiency, unspecified; E66.9 Obesity, unspecified; D64.9 Anemia, unspecified
CPT/HCPCS: 36415; 80053; 80061; 82306; 82550; 83036; 84439; 84443; 85025; 85652; 86140

== ENCOUNTER → 2021-09-27 | Outpatient (CLI) | payer OTHER ==
[2021-09-27 10:55] LABS: Basophils # (A) 0.04 X 10*3/uL (0.00-0.10); Basophils % (A) 0.4 %; Eosinophils # (A) 0.03 X 10*3/uL (0.04-0.35); Eosinophils % (A) 0.3 %; HCT 47.3 % (37.2-46.3); HGB 14.9 g/dL (12.0-15.0); Lymphocytes # (A) 1.48 X 10*3/uL (0.90-5.00); Lymphocytes % (A) 15.7 %; MCH 28.6 pg (27.0-32.0); MCHC 31.5 g/dL (32.0-37.0); MCV 90.8 fL (80.0-97.0); Mean Platelet Volume 10.6 fL (9.5-12.2); Monocytes # (A) 0.58 X 10*3/uL (0.20-1.00); Monocytes % (A) 6.2 %; Neutrophils # (A) 7.26 X 10*3/uL (1.80-7.70); Neutrophils % (A) 77.1 %; Platelet Count 287 X 10*3/uL (140-440); RBC 5.21 X 10*6/uL (4.10-5.20); RDW 13.5 % (11.5-14.5); WBC 9.42 X 10*3/uL (4.50-10.00)
[2021-09-27 13:49] LABS: ALT 20 U/L (8-44); AST 13 U/L (13-35); African American GFR (CKD) 83.3 (60.0-200.0); Albumin 4.4 g/dL (3.8-4.9); Albumin/Globulin Ratio 1.98 (1.60-3.17); Alkaline Phosphatase 72 U/L (41-126); BUN/Creat Ratio 11.49 Ratio (12.00-20.00); Calcium 9.8 mg/dL (8.7-10.3); Carbon Dioxide 25.9 mmol/L (20.0-27.5); Chloride 104 mmol/L (96-109); Chol/HDL Ratio 2.46 Ratio; Creatine Kinase 101 U/L (26-186); Globulin 2.2 g/dL (1.6-3.3); Glucose 108 mg/dL (70-110); LDL Cholesterol,Calculated 84.9 mg/dL (0.0-131.0); Non-African American GFR(CKD) 71.9 (60.0-200.0); Phosphorus 3.6 mg/dL (2.4-5.1); Potassium 4.6 mmol/L (3.5-5.5); Sodium 143 mmol/L (135-145); Total Protein 6.7 g/dL (6.2-8.2); VLDL Calculation 17.88 mg/dL (5.00-40.00)
[2021-09-27 14:48] LABS: C Reactive Protein <0.30 mg/dL (0.00-0.80)
[2021-09-27 16:34] LABS: Erythrocyte Sedimentation Rate 6 mm/Hr (0-30)
== END | disposition home or self-care (01) ==
LOC: LABWHC1 06:59
PROVIDERS: ATTEND Internal Medicine
DX: Z00.00 Encounter for general adult medical examination without abnormal findings (principal); I10 Essential (primary) hypertension; E78.5 Hyperlipidemia, unspecified; E03.9 Hypothyroidism, unspecified; E55.9 Vitamin D deficiency, unspecified; D64.9 Anemia, unspecified; J44.9 Chronic obstructive pulmonary disease, unspecified
CPT/HCPCS: 36415; 80053; 80061; 82306; 82550; 83735; 84100; 84439; 84443; 85025; 85652; 86140

== ENCOUNTER → 2021-11-14 | Outpatient (CLI) | payer OTHER ==
--- NOTE | 2021-11-18 09:19 | MM ---
Reason for exam: additional evaluation requested from prior study. Last mammogram was performed 2 years and 4 months ago. History: Patient is postmenopausal, has history of high-risk lesion on a previous biopsy at age 58, and has history of other cancer at age 32. Benign MG pre op loc each addl LT of the left breast, August 17, 2019. Benign MG pre op needle loc LT of the left breast, August 17, 2019. High risk US biopsy breast VAD LT of the left breast, July 07, 2019. Benign excisional biopsy of the right breast, 2003. Reductions of both breasts, 1998. Took progesterone beginning at age 40. Physical Findings: Nurse did not find any significant physical abnormalities on exam. MG 3D Diag Mammo W/Cad JONH Bilateral CC and MLO view(s) were taken. Prior study comparison: July 07, 2019, left breast MG 3d diag mammo wo cad LT. July 01, 2019, left breast MG 3d diag mammo w/cad LT. There are scattered fibroglandular densities. Surgical clips left breast. No significant new findings when compared with previous films. These results were verbally communicated with the patient and result sheet given to the patient on 11/14/21. ASSESSMENT: Benign, BI-RAD 2 RECOMMENDATION: Routine screening mammogram of both breasts in 1 year.
== END | disposition home or self-care (01) ==
LOC: RADMAMWWP 12:58
PROVIDERS: ATTEND Internal Medicine
DX: R92.8 Other abnormal and inconclusive findings on diagnostic imaging of breast (principal); Z78.0 Asymptomatic menopausal state
CPT/HCPCS: 77066; G0279; 77062

== ENCOUNTER 2022-09-05 17:12 | Emergency (ER) | payer OTHER ==
[2022-09-05] MEDS ORDERED: LIDOCAINE 1%-EPI 1:100,000 20 ML VIAL SQ STA (19:21)
[2022-09-05] MEDS ORDERED: TOPICAL SKIN ADHESIVE 1 EACH AMP TOPICAL ONE (19:40)
[2022-09-05] MEDS ORDERED: LIDOCAINE/EPINEPHR/TETRACAINE 5 ML BOTTLE TOPICAL ONE (19:40)
[2022-09-05] MEDS ORDERED: CEPHALEXIN 500MG STARTER PACK 4 CAP BTL PO STA (19:41)
[2022-09-05] MEDS ORDERED: DIPH,PERTUS(ACELL)TETVAC-LF 0.5 ML VIAL IM ONE (20:35)
[2022-09-05] MEDS ORDERED: BACITRACIN OINT 1 EACH PACKET TOPICAL ONE (20:36)
--- NOTE | 2022-09-05 20:39 | ED ---
Wound/Laceration HPI - General Chief Complaint: Wound/Laceration Stated Complaint: fall Source: patient Mode of arrival: ambulatory Limitations: no limitations - History of Present Illness Initial Comments: This is a pleasant 62-year-old female who sustained a mechanical fall at around 2 AM at home. She fell forward into a dresser and sustained a laceration on her right forearm as well as her right facial area. Denying any significant pain. No bleeding disorders. No blood thinners. Loss of consciousness. No nausea or vomiting. No dizziness. No headache. No neck pain. Patient stopped at urgent care and eventually was sent here for evaluation. Last tetanus is unknown. No headache, no fever or chills, no changes in vision or hearing, no sore throat or difficulty with speech, no neck pain, no chest pain or shortness of breath, no abdominal pain, no nausea or vomiting, no changes in urination or bowel movements, no numbness or tingling, no extremity pain, no skin rashes or lesions. Past medical, surgical, social, and family history reviewed. - Related Data Home Medications Medication Instructions Recorded Confirmed ALPRAZolam [Xanax] 0.5 mg PO BID 06/22/19 08/26/19 Cyclobenzaprine [Flexeril] 5 mg PO BID PRN 06/22/19 08/26/19 Enalapril [Vasotec] 10 mg PO DAILY 06/22/19 08/26/19 Levothyroxine Sodium [Synthroid] 50 mcg PO DAILY 06/22/19 08/26/19 Simvastatin [Zocor] 10 mg PO HS 06/22/19 08/26/19 amLODIPine [Norvasc] 2.5 mg PO BID 06/22/19 08/26/19 busPIRone HCl [Buspar] 5 mg PO TID 06/22/19 08/26/19 oxyCODONE-APAP 10-325MG [Percocet 10 mg PO Q8HR PRN 06/22/19 08/26/19 10-325 mg] rOPINIRole HCL [Requip] 1 mg PO HS 06/22/19 08/26/19 traZODone HCL 100 mg PO HS 06/22/19 08/26/19 Montelukast [Singulair] 10 mg PO HS 08/15/19 08/26/19 Previous Rx's Medication Instructions Recorded Cephalexin [Keflex] 500 mg PO Q6HR #40 cap 09/05/22 Allergies Allergy/AdvReac Type Severity Reaction Status Date / Time No Known Allergies Allergy Verified 09/05/22 18:28 Review of Systems ROS Statement: Those systems with pertinent positive or pertinent negative responses have been documented in the HPI. ROS Other: All systems not noted in ROS Statement are negative. Past Medical History Past Medical History: Hyperlipidemia, Hypertension, Thyroid Disorder Additional Past Medical History / Comment(s): sinus drainage and congestion on occasion History of Any Multi-Drug Resistant Organisms: None Reported Past Surgical History: Breast Surgery, Hysterectomy, Orthopedic Surgery Additional Past Surgical History / Comment(s): breast reduction 2000. left wrist surgery Past Anesthesia/Blood Transfusion Reactions: No Reported Reaction Past Psychological History: Anxiety, Depression Smoking Status: Never smoker Past Alcohol Use History: None Reported Past Drug Use History: None Reported - Past Family History Mother Family Medical History: Cancer Father Additional Family Medical History / Comment(s): abdominal aortic aneurysm- rupture General Exam - General Exam Comments Initial Comments: Patient does not appear to be ill or toxic. Neurologically intact. Alert and oriented 4. Cranial nerves II through XII are intact. Limitations: no limitations General appearance: alert, in no apparent distress Head exam: Present: atraumatic, normocephalic, normal inspection Eye exam: Present: normal appearance, PERRL, EOMI. Absent: scleral icterus, conjunctival injection, periorbital swelling ENT exam: Present: normal exam, normal oropharynx, mucous membranes moist, TM's normal bilaterally, normal external ear exam, other (Patient has a superficial laceration to her right cheek. This is 3 cm. No tenderness. No foreign body. No evidence of infectious process. ). Absent: mucous membranes dry Neck exam: Present: normal inspection, full ROM. Absent: tenderness, meningismus, lymphadenopathy Respiratory exam: Present: normal lung sounds bilaterally. Absent: respiratory distress, wheezes, rales, rhonchi, stridor Cardiovascular Exam: Present: regular rate, normal rhythm, normal heart sounds. Absent: systolic murmur, diastolic murmur, rubs, gallop, clicks GI/Abdominal exam: Present: soft, normal bowel sounds. Absent: distended, tenderness, guarding, rebound, rigid Extremities exam: Present: full ROM, normal capillary refill. Absent: normal inspection (Large flap-like laceration to the posterior aspect of the right forearm. No bony involvement. No foreign body. Hemostasis obtained. No distal or proximal injuries. Pulses intact. Distal sensation intact.), tenderness, pedal edema, joint swelling, calf tenderness Back exam: Present: normal inspection Neurological exam: Present: alert, oriented X3, CN II-XII intact, normal gait. Absent: altered, motor sensory deficit Psychiatric exam: Present: normal affect, normal mood. Absent: anxious, flat affect, manic Skin exam: Present: warm, dry, normal color. Absent: rash, cyanosis, diaphoretic, erythema, urticaria, vesicles Course Vital Signs 09/05/22 18:26 Temperature 97.2 F L Pulse Rate 88 Respiratory 20 Rate Blood Pressure 128/81 O2 Sat by Pulse 96 Oximetry Procedures - Laceration Laceration #1 Consent Obtained: verbal consent Indication: laceration Site: face Size (cm): 3 Description: linear Depth: simple, single layer Pre-repair: wound explored, irrigated extensively, deep structures intact Type of Sutures: other (Tissue adhesive) Patient Tolerated Procedure: well, no complications Additional Comments: Topical let solution for anesthesia Laceration #2 Consent Obtained: verbal consent Indication: laceration Site: upper extremity (Right forearm) Size (cm): 12 Description: flap Anesthesia Technique: local infiltration Pre-repair: wound explored, irrigated extensively, deep structures intact Type of Sutures: nylon (11), vicryl (3) Size of Sutures: 5-0 Number of Sutures: 14 Technique: simple, interrupted Patient Tolerated Procedure: well, no complications Additional Comments: Patient required 11 simple interrupted sutures as well as 3 subcutaneous sutures for this double layer closure. Note this is an old laceration as the patient injured herself at about 2 AM. This laceration was Smillie 18 hours old. However the laceration was quite gaping. Laceration immediately irrigated extensively which I did. We did very loosely approximate the skin edges. Patient was counseled on increased risk of infection. Medical Decision Making - Medical Decision Making Patient counseling increased risk of infection of the old laceration as the injury was incurred at 2 AM. We discussed closing the gaping wound loosely. Patient required a double layer closure. There was a fair amount of space which also increases the risk of infection. Patient was counseled extensively about wound care, signs and symptoms of infection, need for wound check in 48-72 hours. Patient voiced understanding. Facial laceration closed with tissue a dhesive. Was neurologically intact, no blood thinners. There is no loss of consciousness. [place] [facility] rules did not indicate computed tomography scan for the patient. Patient was told to return to the ER for any signs or symptoms worsen. Told to return immediately if any other problems arise. All questions answered. Treatment plan discussed. Patient in agreement Every effort has been made to ensure accuracy of this dictation. However, due to the limitations of electronic medical records and dictation devices, errors in charting still occur. Salvage Machine Operator Dr. Ruvalcaba Disposition Clinical Impression: Facial laceration, Laceration of right forearm with complication, Closed head injury, Fall Disposition: HOME SELF-CARE Condition: Good Instructions (If sedation given, give patient instructions): Skin Adhesive Care (ED), Care For Your Stitches (ED), Laceration (ED), Head Injury (ED) Additional Instructions: Suture removal in 10-12 days. Wash the wound daily with warm soap and water. Cover with an antibiotic ointment such as Neosporin or triple antibody appointment. Sutures in the right forearm will need to come out. Follow the tissue adhesive instructions for the facial laceration. Call your regular doctor for a wound check in 48-72 hours. Return to the ER if you're unable to get in with your doctor. Follow-up with your regular physician as directed. Return to the ER immediately if any symptoms worsen, new symptoms arise, or any other problems develop. Prescriptions: Cephalexin [Keflex] 500 mg PO Q6HR #40 cap Is patient prescribed a controlled substance at d/c from ED?: No Referrals: Kieran Tierney MD [Primary Care Provider] - 09/08/22 Time of Disposition: 20:59
[2022-09-05 21:12] VITALS: BP 128/68; PULSE 80; RESP 16; TEMP 97.1
== END 2022-09-05 21:11 | disposition home or self-care (01) ==
LOC: EC 17:12
DX: S51.811A Laceration without foreign body of right forearm, initial encounter (principal); S01.81XA Laceration without foreign body of other part of head, initial encounter; I10 Essential (primary) hypertension; E78.5 Hyperlipidemia, unspecified; E03.9 Hypothyroidism, unspecified; F41.9 Anxiety disorder, unspecified; F32.A Depression, unspecified; Z79.890 Hormone replacement therapy; Z79.899 Other long term (current) drug therapy; W19.XXXA Unspecified fall, initial encounter; Y92.009 Unspecified place in unspecified non-institutional (private) residence as the place of occurrence of the external cause; Z23 Encounter for immunization
CPT/HCPCS: 12004; 12013; 90471; 90715; 99283

== ENCOUNTER → 2022-10-07 | Outpatient (CLI) | payer OTHER ==
[2022-10-07 14:34] LABS: Basophils # (A) 0.05 X 10*3/uL (0.00-0.10); Basophils % (A) 0.6 %; Eosinophils % (A) 1.3 %; HCT 44.3 % (37.2-46.3); HGB 14.6 g/dL (12.0-15.0); Immature Grans, Automated 0.4 %; Lymphocytes # (A) 2.15 X 10*3/uL (0.90-5.00); Lymphocytes % (A) 27.6 %; MCH 28.8 pg (27.0-32.0); MCV 87.4 fL (80.0-97.0); Mean Platelet Volume 10.1 fL (9.5-12.2); Monocytes # (A) 0.45 X 10*3/uL (0.20-1.00); Monocytes % (A) 5.8 %; NRBC Per 100 WBC 0 /100 WBCS (0.0-0.0); Neutrophils % (A) 64.3 %; Platelet Count 298 X 10*3/uL (140-440); RBC 5.07 X 10*6/uL (4.10-5.20); RDW 13.6 % (11.5-14.5); WBC 7.78 X 10*3/uL (4.50-10.00)
[2022-10-07 14:48] LABS: Erythrocyte Sedimentation Rate 13 mm/Hr (0-30)
[2022-10-07 15:09] LABS: ALT 18 U/L (8-44); AST 15 U/L (13-35); African American GFR (CKD) 87.7 (60.0-200.0); Albumin 4.4 g/dL (3.8-4.9); Albumin/Globulin Ratio 2.02 (1.60-3.17); Alkaline Phosphatase 71 U/L (41-126); BUN/Creat Ratio 15.08 Ratio (12.00-20.00); Blood Urea Nitrogen 12.5 mg/dL (9.0-27.0); C Reactive Protein <0.30 mg/dL (0.00-0.80); Calcium 9.7 mg/dL (8.7-10.3); Chloride 104 mmol/L (96-109); Creatine Kinase 52 U/L (26-186); Globulin 2.2 g/dL (1.6-3.3); Glucose 95 mg/dL (70-110); Magnesium 2.2 mg/dL (1.5-2.4); Non-African American GFR(CKD) 75.7 (60.0-200.0); Phosphorus 3.6 mg/dL (2.4-5.1); Potassium 4.4 mmol/L (3.5-5.5); Sodium 141 mmol/L (135-145); Total Protein 6.5 g/dL (6.2-8.2)
[2022-10-07 15:58] LABS: Chol/HDL Ratio 2.29 Ratio; LDL Cholesterol,Calculated 85.5 mg/dL (0.0-131.0); VLDL Calculation 14.78 mg/dL (5.00-40.00)
== END | disposition home or self-care (01) ==
LOC: LABWHC1 06:57
PROVIDERS: ATTEND Internal Medicine
DX: I10 Essential (primary) hypertension (principal); E78.5 Hyperlipidemia, unspecified; E03.9 Hypothyroidism, unspecified; E55.9 Vitamin D deficiency, unspecified; E66.9 Obesity, unspecified
CPT/HCPCS: 36415; 80053; 80061; 82306; 82550; 83735; 84100; 84439; 84443; 85025; 85652; 86140

== ENCOUNTER → 2024-02-23 | Outpatient (CLI) | payer OTHER ==
--- NOTE | 2024-02-23 11:23 | US ---
EXAMINATION TYPE: US venous doppler duplex LE DATE OF EXAM: 02/23/2024 11:02 AM COMPARISON: NONE CLINICAL INDICATION: Female, 63 years old with history of R22.42,R22.41 SWELLING OF JONH LIMBS; No hx of DVT. Swelling x 1 month. SIDE PERFORMED: Bilateral TECHNIQUE: The lower extremity deep venous system is examined utilizing real time linear array sonog yonatan with graded compression, doppler sonography and color-flow sonography. VESSELS IMAGED: Common Femoral Vein Deep Femoral Vein Greater Saphenous Vein * Femoral Vein Popliteal Vein Small Saphenous Vein * Proximal Calf Veins (* superficial vessels) Right Leg: No evidence of DVT. Left Leg: No evidence of DVT. IMPRESSION:
== END | disposition home or self-care (01) ==
LOC: RADUSWWP 10:24
PROVIDERS: ATTEND Internal Medicine
DX: R22.43 Localized swelling, mass and lump, lower limb, bilateral (principal)
CPT/HCPCS: 93970

== ENCOUNTER → 2024-07-20 | Outpatient (CLI) | payer OTHER ==
[2024-07-20 16:39] LABS: HCT 42.6 % (37.2-46.3); HGB 13.7 g/dL (12.0-15.0); MCH 28.8 pg (27.0-32.0); MCHC 32.2 g/dL (32.0-37.0); MCV 89.7 FL (80.0-97.0); Mean Platelet Volume 10.3 FL (9.5-12.2); NRBC Per 100 WBC 0 X 10*3/uL (0.00-0.01); Platelet Count 353 X 10*3/uL (140-440); RBC 4.75 X 10*6/uL (4.10-5.20); RDW 14.4 % (11.5-14.5); WBC 8.47 X 10*3/uL (4.50-10.00)
[2024-07-20 17:02] LABS: BUN/Creat Ratio 9.75 Ratio (12.00-20.00); Blood Urea Nitrogen 7.8 mg/dL (9.0-27.0); Calcium 9.6 mg/dL (8.7-10.3); Carbon Dioxide 24.3 mmol/L (21.6-31.8); Chloride 106 mmol/L (96-109); Glucose 111 mg/dL (70-110); Sodium 141 mmol/L (135-145); T4, Free (Free Thyroxine) 0.94 ng/dL (0.80-1.80)
== END | disposition home or self-care (01) ==
LOC: LABWHC1 10:21
PROVIDERS: ATTEND Internal Medicine
DX: I10 Essential (primary) hypertension (principal); E78.5 Hyperlipidemia, unspecified; I82.409 Acute embolism and thrombosis of unspecified deep veins of unspecified lower extremity; E03.9 Hypothyroidism, unspecified
CPT/HCPCS: 36415; 80048; 84439; 84443; 85027; 85379